=== PATIENT | male | born 1950 | race Caucasian/White ===

== ENCOUNTER 2021-05-16 21:35 | Emergency (ER) | payer OTHER, MEDICARE, SELFPAY ==
[2021-05-16 21:51] VITALS: BP 164/88; PULSE 85; RESP 15; TEMP 37.2; O2SAT 96; BMI 41.5
--- NOTE | 2021-05-16 21:55 | DI.RAD.S_ITS ---
PROCEDURE: XR HAND LT MIN 3V INDICATIONS: fall with pain and swelling to hand and wrist TECHNIQUE: 3 views of the hand(s) acquired. COMPARISON: [facility], CR, XR WRIST LT MIN 3V, 05/16/2021, 22:07. FINDINGS: Bones: There is a mildly displaced fracture seen involving the 4th metacarpal neck. No additional fractures or dislocations. Carpal bones are normally aligned. No suspicious bony lesions. There are degenerative changes seen, which are worst involving the 1st carpometacarpal joint. Degenerative changes are seen, including the distal interphalangeal joints. Soft tissues: Generalized soft tissue swelling can be seen of the hand. IMPRESSION: There is a mildly displaced fracture seen involving the 4th metacarpal neck. If it would be helpful for clinical management decision making, please consider a dedicated hand CT for further evaluation. Relatively prominent soft tissue swelling is seen. Dictated by: Pritesh Ortega M.D. on 05/16/2021 at 21:36 Approved by: Pritesh Ortega M.D. on 05/16/2021 at 21:38
--- NOTE | 2021-05-16 21:56 | DI.RAD.S_ITS ---
PROCEDURE: XR WRIST LT MIN 3V INDICATIONS: fall with pain and swelling to hand and wrist TECHNIQUE: 4 views of the wrist were acquired. COMPARISON: [facility], CR, XR HAND LT MIN 3V, 05/16/2021, 22:07. FINDINGS: Bones: A 4th metacarpal neck fracture is seen, with mild displacement and comminution. No additional fractures or dislocations. No suspicious bony lesions. Degenerative changes are seen throughout, which are most prominent involving the 1st carpometacarpal joint. Milder degenerative changes are seen elsewhere. Scaphoid view: No navicular fractures are seen. Soft tissues: No suspicious soft tissue calcifications. IMPRESSION: There is a 4th metacarpal neck fracture seen. No displaced fractures are seen of the wrist. If it would be helpful for clinical management decision making, please consider a dedicated hand CT. Dictated by: Pritesh Ortega M.D. on 05/16/2021 at 21:35 Approved by: Pritesh Ortega M.D. on 05/16/2021 at 21:36
--- NOTE | 2021-05-16 23:12 | ED.FALL ---
HPI - Fall General Chief Complaint: Fall Stated Complaint: LEFT HAND INJURY Time Seen by Provider: 05/16/21 22:02 Source: patient Mode of arrival: Ambulatory History of Present Illness HPI Narrative: Patient is a 71-year-old male here for evaluation of a left hand injury. He has an issue with progressive degenerative muscular disease and also lower back discomfort. He uses a walker to ambulate at baseline. He states that he lost his balance and fell banding his left finger/wrist backwards. He had pain in his left hand and swelling in this area. No other injuries from the event. Related Data Home Medications Medication Instructions Recorded Confirmed albuterol sulfate #0 08/17/17 albuterol sulfate 90 mcg/actuation 2 puff INH #0 08/17/17 aerosol inhaler (Ventolin HFA) budesonide-formoterol HFA 160 1 inh INH BID #0 08/17/17 mcg-4.5 mcg/actuation aerosol inhaler (Symbicort) levothyroxine 200 mcg tablet 0.2 mg #0 08/17/17 (Synthroid) lisinopril 20 mg tablet 20 mg PO QDAY #0 08/17/17 multivitamin (Multiple Vitamins) 1 tab PO QDAY #0 08/17/17 nortriptyline 25 mg capsule 25 mg PO HS #0 08/17/17 oxybutynin chloride 5 mg 5 mg PO QDAY #0 08/17/17 tablet,extended release 24 hr (Ditropan XL) pravastatin 80 mg tablet 80 mg PO HS #0 08/17/17 (Pravachol) Previous Rx's Medication Instructions Recorded azithromycin 250 mg tablet 250 - 500 mg PO QDAY #6 tab 08/17/17 (Zithromax) nystatin 100,000 unit/mL oral 5 ml PO QID #280 ml 08/17/17 suspension prednisone 20 mg tablet 40 mg PO QDAY #14 tab 08/17/17 Allergies Allergy/AdvReac Type Severity Reaction Status Date / Time codeine [CODEINE] Allergy Unknown Unverified 11/24/17 12:41 morphine [MORPHINE] Allergy Unknown Unverified 11/24/17 12:41 Review of Systems Musculoskeletal Musculoskeletal: Reports system reviewed and no additional complaints, except as documented and Reports as per HPI Integumentary/Breasts Comments: Bruising and pain left hand Neurologic Neurologic: Reports system reviewed and no additional complaints, except as documented and Reports as per HPI Hematologic/Lymphatic On Anticoagulants: No Patient History Medical History Lower back pain Social History Smoking Status: Never smoker Smoking Status: Never smoker alcohol intake frequency: a few times a month Substance Use Type: does not use Exam Initial Vital Signs Initial Vital Signs: Vital Signs Temperature 99 F 05/16/21 21:51 Pulse Rate 85 05/16/21 21:51 Respiratory Rate 15 05/16/21 21:51 Blood Pressure 164/88 H 05/16/21 21:51 Pulse Oximetry 96 05/16/21 21:51 Resp Effort & Inspection: normal respiratory effort Cardio Pulses: radial pulses present on the left Skin Other: Bruising located on the dorsum of the left hand Neuro Sensory Exam: no sensory deficits noted Extrem Other: Patient does have slight tenderness to the 4th and 5th and 3rd metacarpals. Also has tenderness on the dorsum the left wrist over the carpal bones. Procedures Orthopedic Splinting/Casting Injury #1: Side: left Upper Extremity Injury Location: wrist and hand Upper Extremity Immobilizer: ulnar gutter Post splinting neuro exam: intact Post splinting vascular exam: intact Placed by: Provider Course Orders Ordered: ED Orders 05/16/21 21:55 XR hand LT min 3V Stat 05/16/21 21:56 XR wrist LT min 3V Stat Vital Signs Vital signs: Vital Signs - 8 hr 05/16/21 23:57 Pulse Rate 69 Respiratory Rate 17 Blood Pressure 126/88 Pulse Oximetry 96 MDM - Fall Imaging Data Extremity x-ray #1: Radiologist's Impression: Launch?[place] [address] XRay Report Signed Patient: Khris Patricia MR#: [id number] : 1950 Acct:[id number] Age/Sex: 71 / M Date of Service: 05/16/21 Loc: ED Accession Number: [id number] ?? Procedure: XR hand LT min 3V Ordering Provider: Dayday Holman D.O. PROCEDURE:? XR HAND LT MIN 3V ? INDICATIONS:? fall with pain and swelling to hand and wrist ? TECHNIQUE:? 3 views of the hand(s) acquired.? ? COMPARISON:? [facility], CR, XR WRIST LT MIN 3V, 05/16/2021, 22:07. ? FINDINGS:? ? Bones:? There is a mildly displaced fracture seen involving the 4th metacarpal neck.? No additional fractures or dislocations.? Carpal bones are normally aligned.? No suspicious bony lesions.? There are degenerative changes seen, which are worst involving the 1st carpometacarpal joint.? Degenerative changes are seen, including the distal interphalangeal joints. ? Soft tissues:? Generalized soft tissue swelling can be seen of the hand. ? ? IMPRESSION:? There is a mildly displaced fracture seen involving the 4th metacarpal neck. ? If it would be helpful for clinical management decision making, please consider a dedicated hand CT for further evaluation. ? Relatively prominent soft tissue swelling is seen.? ? Dictated by: Pritesh Ortega M.D. on 05/16/2021 at 21:36 ? ? Approved by: Pritesh Ortega M.D. on 05/16/2021 at 21:38?? Extremity x-ray #2: Radiologist's Impression: [place] [address] XRay Report Signed Patient: Khris Patricia MR#: [id number] : 1950 Acct:[id number] Age/Sex: 71 / M Date of Service: 05/16/21 Loc: Accession Number: [id number] ?? Procedure: XR wrist LT min 3V Ordering Provider: Dayday Holman D.O. PROCEDURE:? XR WRIST LT MIN 3V ? INDICATIONS: fall with pain and swelling to hand and wrist ? TECHNIQUE:? 4 views of the wrist were acquired.? ? COMPARISON:? [facility], CR, XR HAND LT MIN 3V, 05/16/2021, 22:07. ? FINDINGS:? ? Bones:? A 4th metacarpal neck fracture is seen, with mild displacement and comminution.? ? No additional fractures or dislocations.? No suspicious bony lesions.? Degenerative changes are seen throughout, which are most prominent involving the 1st carpometacarpal joint.? Milder degenerative changes are seen elsewhere.? ? Scaphoid view:? No navicular fractures are seen. ? Soft tissues:? No suspicious soft tissue calcifications.? ? ? IMPRESSION:? There is a 4th metacarpal neck fracture seen. ? No displaced fractures are seen of the wrist.? ? If it would be helpful for clinical management decision making, please consider a dedicated hand CT. ? Dictated by: Pritesh Ortega M.D. on 05/16/2021 at 21:35 ? ? Approved by: Pritesh Ortega M.D. on 05/16/2021 at 21:36?? MDM Narrative Medical decision making narrative: Patient does have what appears to be a new fracture the dorsum of the left 4th metacarpal. He is tender over his carpal bones but no fractures were noted on the x-rays. He was placed in an ulnar gutter splint. He was given care instructions and return precautions. And also follow-up instructions. He expressed understanding and agreement. Discharge Plan Departure Patient Disposition: Home Clinical Impression: Hand fracture, left Instructions: DI for a Hand Fracture, How to Take Care of Your Splint Activity Restrictions/Additional Instructions: The splint needs to stay on and stay clean and stay dry. Use Tylenol/ibuprofen for any discomfort. Contact the Orthopedic Department at the number provided below for follow-up. Return to the emergency department for any new or worsening symptoms Prescriptions: No Action levothyroxine [Synthroid] 200 MCG tablet 0.2 mg Qty: 0 RF: 0 lisinopril 20 MG tablet 20 mg PO QDAY Qty: 0 RF: 0 oxybutynin chloride [Ditropan XL] 5 MG tablet extended release 24hr 5 mg PO QDAY Qty: 0 RF: 0 albuterol sulfate [Ventolin HFA] 90 MCG/PUFF HFA aerosol inhaler 2 puff INH Qty: 0 RF: 0 albuterol sulfate 2.5 MG/3 ML solution for nebulization Qty: 0 RF: 0 nortriptyline 25 MG capsule 25 mg PO HS Qty: 0 RF: 0 pravastatin [Pravachol] 80 MG tablet 80 mg PO HS Qty: 0 RF: 0 budesonide-formoterol [Symbicort] 160 MCG/4.5 MCG HFA aerosol inhaler 1 inh INH BID Qty: 0 RF: 0 multivitamin [Multiple Vitamins] 1 EACH tablet 1 tab PO QDAY Qty: 0 RF: 0 azithromycin [Zithromax] 250 MG tablet 250 - 500 mg PO QDAY Qty: 6 RF: 0 prednisone 20 MG tablet 40 mg PO QDAY Qty: 14 RF: 0 nystatin 100,000 UNIT/1 ML suspension 5 ml PO QID Qty: 280 RF: 0 Referrals: Kavin Ley MD [Primary Care Provider] - Blu Mann MD [Physician] -
[2021-05-16 23:57] VITALS: BP 126/88; PULSE 69; RESP 17; O2SAT 96
== END 2021-05-16 23:58 | disposition home or self-care (01) ==
PROVIDERS: Emergency Provider Emergency Medicine; PCP Family Medicine Adult Medicine
DX: S62.92XA Unspecified fracture of left hand, initial encounter for closed fracture (principal); M54.50 Low back pain, unspecified; W19.XXXA Unspecified fall, initial encounter
CPT/HCPCS: 29105; 73110; 73130; 99283